=== PATIENT | female | born 1940 | race Caucasian/White ===

== ENCOUNTER 2019-12-13 05:02 | Outpatient (CLI) | payer MEDICARE, OTHER ==
[2019-12-14 12:37] LABS: SARS-CoV-2 MS2 Positive; SARS-CoV-2 N Gene Negative; SARS-CoV-2 S Gene Negative; SARS-CoV-2 orf1ab Negative
== END 2019-12-13 05:03 | disposition home or self-care (01) ==
LOC: LABBT 05:02
PROVIDERS: ATTEND Ophthalmology Retina Specialist
DX: Z01.812 Encounter for preprocedural laboratory examination (principal); Z11.59 Encounter for screening for other viral diseases; H43.11 Vitreous hemorrhage, right eye
CPT/HCPCS: 87635; U0003

== ENCOUNTER → 2019-12-17 | Day surgery (SDC) | payer MEDICARE ==
[2019-12-12 12:46] VITALS: BMI 33.2
[~2019-12-17] MED LIST: Bupivacaine 0.25% 10 ML VIAL ONE; CEFAZOLIN 1 GM VIAL ONE; Cyclopentolate 1% Opth Drop 2 ML BOT ONE; EPINEPHrine 0.3 MG in Ophthalmic Irrigation Solution 500 ML IRR SCH; Fentanyl 100 MCG/2 ML VIAL ONE; Lidocaine 1% PF 5 ML VIAL ONE; Lidocaine 4% PF 5 ML AMP ONE; Maxitrol 0.1% Opth Oint 3.5 GM TUBE ONE; Meperidine HCl/PF 25 MG/ML VIAL ONE; Midazolam HCl 2 mg/2 ml Vial ONE; PROPOFOL 20 ML ONE; PROPOFOL 200 MG/20 ML VIAL ONE; Phenylephrine 2.5% Ophth Soln 5 ML BOT ONE; Triamcinolone 40 MG/ML VIAL ONE
--- NOTE | 2019-12-17 10:57 | OP ---
DATE OF PROCEDURE: 12/17/2019 PREOPERATIVE DIAGNOSIS: Vitreous hemorrhage, right eye. POSTOPERATIVE DIAGNOSIS: Vitreous hemorrhage, right eye. PROCEDURES PERFORMED: 1. 25-gauge pars plana vitrectomy, right eye. 2. Panretinal photocoagulation of focal laser inferiorly, right eye. ESTIMATED BLOOD LOSS: None. SPECIMENS REMOVED: None. COMPLICATIONS: None. ANESTHESIA: MAC with subtenon block. DESCRIPTION OF PROCEDURE: The patient was identified in the preoperative holding area, where the correct eye being the right eye was marked for surgery. The patient was taken to the operating room, where MAC anesthesia was induced. The right eye was prepped and draped in the usual sterile ophthalmic fashion for surgery. A wire-clip lid speculum was placed. An inferonasal conjunctival peritomy was fashioned with Sandi scissors after administration of subtenon block. The block consisted of 1:1 ratio of 4% lidocaine and 0.75% Marcaine. Total of 5 mL was administered. A standard 25-gauge pars plana vitrectomy platform was fashioned with trocars placed approximately 3.5 mm from the limbus. A 6 mm infusion cannula was used inferotemporally. The infusion was noted to be within the vitreous cavity prior to being turned on to infusion pressure of 30 mmHg. The light pipe and microvitrector were introduced in the eye under visualization of the BIOM viewing system. A significant fundus obscuring vitreous hemorrhage was noted. A careful core vitrectomy was performed starting centrally and progressing posteriorly as the fundus came into view. Subsequently, a peripheral shave vitrectomy was performed clearing the vitreous hemorrhage to the safest extent possible with the assistance of scleral depression. A 360-degree scleral depressed exam of periphery revealed no defects. Additionally, an Ozurdex implant was taken with the use of the microvitrector. The vitreous hemorrhage was assumed to be due to a complication related to insertion of an Ozurdex implant. Therefore, prophylactic laser was placed inferiorly to prevent against the retinal detachment. The cannulas were sequentially removed with suturing required at the superotemporal sclerotomy with 8-0 Vicryl suture. Following suturing, all sclerotomies were noted to be watertight. Subconjunctival Ancef and Kenalog were injected. The wire-clip lid speculum was removed followed by application of TobraDex ophthalmic ointment and a light patch and shield. The patient tolerated the procedure well and was taken to outpatient recovery area in good condition. Job ID: [id number]
== END ==
LOC: SDC 05:58
PROVIDERS: ATTEND Ophthalmology Retina Specialist
PROC: 08T43ZZ Resection of Right Vitreous, Percutaneous Approach (ICD-10-PCS; principal; 2019-12-17)
PROC: 08QE3ZZ Repair Right Retina, Percutaneous Approach (ICD-10-PCS; 2019-12-17)
DX: H43.11 Vitreous hemorrhage, right eye (principal); Z88.2 Allergy status to sulfonamides; Z88.5 Allergy status to narcotic agent
CPT/HCPCS: J0171; J0690; J2001; J2175; J2250; J2704; J3010; J3301; S0020

== ENCOUNTER 2022-10-11 08:57 | Day surgery (SDC) | payer MEDICARE ==
[2022-10-10 14:17] VITALS: BMI 30.2
[~2022-10-11 08:57] MED LIST changes: -Bupivacaine 0.25% 10 ML VIAL ONE; -CEFAZOLIN 1 GM VIAL ONE; -Cyclopentolate 1% Opth Drop 2 ML BOT ONE; -Fentanyl 100 MCG/2 ML VIAL ONE; -Lidocaine 1% PF 5 ML VIAL ONE; -Lidocaine 4% PF 5 ML AMP ONE; -Maxitrol 0.1% Opth Oint 3.5 GM TUBE ONE; -Meperidine HCl/PF 25 MG/ML VIAL ONE; -PROPOFOL 20 ML ONE; -PROPOFOL 200 MG/20 ML VIAL ONE; -Phenylephrine 2.5% Ophth Soln 5 ML BOT ONE; -Triamcinolone 40 MG/ML VIAL ONE; +fentaNYL 50 mcg/mL 1 mL Vial ONE
[2022-10-11] MEDS ORDERED: Cyclopentolate 1% Opth Drop 2 ML BOT ONE (09:37)
[2022-10-11] MEDS ORDERED: Phenylephrine 10% OPTH 5 ML BOT ONE (09:37)
[2022-10-11] MEDS ORDERED: Lidocaine 1% PF 5 ML VIAL ONE (10:33)
[2022-10-11] MEDS ORDERED: Triamcinolone 40 MG/ML VIAL ONE (10:33)
[2022-10-11] MEDS ORDERED: CEFAZOLIN 1 GM VIAL ONE (10:33)
[2022-10-11] MEDS ORDERED: Lidocaine 4% PF 5 ML AMP ONE (10:33)
[2022-10-11] MEDS ORDERED: Maxitrol 0.1% Opth Oint 3.5 GM TUBE ONE (10:33)
[2022-10-11] MEDS ORDERED: Bupivacaine 0.75% 10 ML VIAL ONE (10:33)
[2022-10-11] MEDS ORDERED: PROPOFOL 200 MG/20 ML VIAL ONE (10:33)
== END 2022-10-11 12:19 | disposition home or self-care (01) ==
LOC: SDC 08:57
PROVIDERS: ATTEND Ophthalmology Retina Specialist
PROC: 08123J4 Bypass Right Anterior Chamber to Sclera with Synthetic Substitute, Percutaneous Approach (ICD-10-PCS; principal; 2022-10-11)
DX: H40.2210 Chronic angle-closure glaucoma, right eye, stage unspecified (principal); E89.0 Postprocedural hypothyroidism; Z79.01 Long term (current) use of anticoagulants; Z79.82 Long term (current) use of aspirin; Z79.890 Hormone replacement therapy; Z79.899 Other long term (current) drug therapy; Z88.2 Allergy status to sulfonamides; Z88.5 Allergy status to narcotic agent; Z98.49 Cataract extraction status, unspecified eye; Z96.1 Presence of intraocular lens
CPT/HCPCS: 66180; J3010; C1762; J0171; J0690; J2250; J2704; J3301; J3490; L8612